=== PATIENT | male | born 1955 | race Caucasian/White ===

== ENCOUNTER → 2019-11-05 | Outpatient (REF) | payer MEDICARE | LOC: M LAB REF 14:01 | PROVIDERS: ATTEND Orthopaedic Surgery | DX: S92.1 Fracture of talus (principal); X58.XXXA Exposure to other specified factors, initial encounter; Y92.9 Unspecified place or not applicable; Y93.9 Activity, unspecified; Y99.9 Unspecified external cause status ==